=== PATIENT | female | born 1945 | race Caucasian/White ===

== ENCOUNTER 2017-09-20 19:36 | Inpatient (IN) | payer OTHER ==
[~2017-09-20] VITALS: Ht 160 cm; Wt 98.0 kg
[2017-09-20 19:47] VITALS: BP 145/84
[2017-09-20] MEDS ORDERED: COUMADIN 5 MG TA5 M1 PO (19:54)
[2017-09-20] MEDS ORDERED: LISINOPRIL20 MG PO (19:54)
[2017-09-20] MEDS ORDERED: COREG3.125 MG PO (19:55)
[2017-09-20] MEDS ORDERED: ALLOPURINOL 30300 M1 PO (19:55)
[2017-09-20] MEDS ORDERED: ZOCOR20 MG PO (19:56)
[2017-09-20] MEDS ORDERED: NORVASC10 MG PO (19:56)
[2017-09-20] MEDS ORDERED: MACROBID 100 M100 M3 (19:57)
[2017-09-20] MEDS ORDERED: FLOMAX0.4 MG PO (19:57)
[2017-09-20 20:33] LABS: ABSOLUTE BASOPHILS 0.1 thou/uL (0.0-0.2); ABSOLUTE EOSINOPHILS 0.2 thou/uL (0.0-0.7); ABSOLUTE LYMPHOCYTES 2.1 thou/uL (0.8-5.3); ABSOLUTE MONOCYTES 0.6 thou/uL (0.0-1.2); ABSOLUTE NEUTROPHILS 7.7 thou/uL (1.6-8.1); BASOPHILS 0.7 %; EOSINOPHILS 1.6 %; HEMATOCRIT 42.9 % (37.0-47.0); HEMOGLOBIN 14.5 gm/dL (12.0-15.0); LYMPHOCYTES 19.5 %; MCH 33.2 pg (26.0-34.0); MCHC 33.8 g/dL (28.0-37.0); MCV 98.2 fL (80.0-100.0); MONOCYTES 5.4 %; MPV 10.9 fl. (7.2-11.1); NUCLEATED RBCS 0 /100WBC; PLATELET COUNT* 182 thou/uL (150-400); POLYS 72.8 %; RBC 4.37 mil/uL (4.20-5.00); RDW-CV 15.3 % (10.5-14.5); WBC 10.6 thou/uL (4.0-11.0)
[2017-09-20 20:46] LABS: ANION GAP 11 mmol/L (7-16); BUN 22 mg/dL (7-18); CALCIUM 8.7 mg/dL (8.5-10.1); CHLORIDE 105 mmol/L (98-107); CO2 22 mmol/L (21-32); CREATININE 1.4 mg/dL (0.6-1.3); GLUCOSE 145 mg/dL (70-99); POTASSIUM 3.8 mmol/L (3.5-5.1); SODIUM 138 mmol/L (136-145)
[2017-09-20 20:51] LABS: APTT 43.4 Seconds (25.0-31.3); INR 3.7; PROTIME 35.1 Seconds (9.20-11.50)
[2017-09-20 20:52] LABS: ALBUMIN 3.8 g/dL (3.4-5.0); ALKALINE PHOSPHATASE 76 U/L (46-116); LIPASE 138 U/L (73-393); SGOT 15 U/L (15-37); SGPT 15 U/L (30-65); TOTAL BILIRUBIN 0.3 mg/dL (<0.1-1.0); TOTAL PROTEIN 6.9 g/dL (6.4-8.2); TROPONIN-I LEVEL <0.06 ng/mL (<0.06)
[2017-09-21] VITALS (7 sets, daily range): BP systolic 105–147; BP diastolic 49–102
[2017-09-21] MEDS ORDERED: TRAMADOL 50 MG50 MG PO (02:11)
[2017-09-21 12:03] LABS: ABSOLUTE BASOPHILS 0.1 thou/uL (0.0-0.2); ABSOLUTE EOSINOPHILS 0.2 thou/uL (0.0-0.7); ABSOLUTE LYMPHOCYTES 1.9 thou/uL (0.8-5.3); ABSOLUTE MONOCYTES 0.7 thou/uL (0.0-1.2); ABSOLUTE NEUTROPHILS 3.5 thou/uL (1.6-8.1); EOSINOPHILS 2.6 %; HEMATOCRIT 38.8 % (37.0-47.0); HEMOGLOBIN 13.1 gm/dL (12.0-15.0); LYMPHOCYTES 30.8 %; MCH 32.6 pg (26.0-34.0); MCHC 33.7 g/dL (28.0-37.0); MCV 96.9 fL (80.0-100.0); MONOCYTES 10.3 %; MPV 10.6 fl. (7.2-11.1); NUCLEATED RBCS 0 /100WBC; PLATELET COUNT* 166 thou/uL (150-400); POLYS 55.3 %; RDW-CV 15.4 % (10.5-14.5); WBC 6.3 thou/uL (4.0-11.0)
[2017-09-21 12:24] LABS: CALCIUM 8.1 mg/dL (8.5-10.1); CREATININE 1.3 mg/dL (0.6-1.3); POTASSIUM 3.7 mmol/L (3.5-5.1)
[2017-09-22] VITALS: BP 122/55
[2017-09-22 04:00] VITALS: BP 111/51
[2017-09-22 06:18] LABS: HEMATOCRIT 37.6 % (37.0-47.0); HEMOGLOBIN 12.8 gm/dL (12.0-15.0); MCV 96.8 fL (80.0-100.0); MPV 11.3 fl. (7.2-11.1); RBC 3.88 mil/uL (4.20-5.00); RDW-CV 15.1 % (10.5-14.5); WBC 6.1 thou/uL (4.0-11.0)
[2017-09-22 06:29] LABS: ALBUMIN 2.9 g/dL (3.4-5.0); CALCIUM 8.1 mg/dL (8.5-10.1); CREATININE 1.2 mg/dL (0.6-1.3); MAGNESIUM 1.8 mg/dL (1.8-2.4); POTASSIUM 3.6 mmol/L (3.5-5.1); TOTAL BILIRUBIN 0.4 mg/dL (<0.1-1.0); TOTAL PROTEIN 5.6 g/dL (6.4-8.2)
[2017-09-22 07:16] LABS: PROTIME 12.4 Seconds (9.20-11.50)
[2017-09-22 07:17] LABS: INR 1.3
[2017-09-22 08:00] VITALS: BP 111/50
[2017-09-22] MEDS ORDERED: BACTRIM DS TAB1 EACH PO (08:51)
[2017-09-22 10:03] VITALS: BP 111/50
--- NOTE | 2017-09-22 12:38 | EKG ---
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 ALFREDO Goddard : 1945 Requested By: Riley Perry Order Number: [id number] MD: Son Rosa Measurements Intervals [place] Rate: 94 P: 23 AK: 195 QRS: -39 QRSD: 87 T: 17 QT: 398 QTc: 498 Interpretive Statements Sinus rhythm Left axis deviation Borderline prolonged QT interval No previous ECG available for comparison Electronically Signed On 09-22-2017 12:38:21 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
--- NOTE | 2017-09-29 14:50 | CON ---
[address] [address] CONSULTATION Name: CHEPE CAMPBELL Room: [address] IN M.R.#: [id number] Admission: 09/20/17 Attend Phys: Lamont Jones MD Discharge: 09/22/17 Date of : 41 Report #: [id number] THIS REPORT FOR: //name// CC: Lamont Roca DO DICTATED BY: Ciara Garcia [facility] DATE OF SERVICE: 09/21/2017 Please note at the time of this dictation, the patient was seen and physically examined by myself. REASON FOR CONSULTATION: Questionable hematochezia and abdominal pain. HISTORY OF PRESENT ILLNESS: This is a 72-year-old female who presented to the Emergency Room after starting an antibiotic for a UTI on the and when she went to the bathroom, she noticed blood in the toilet. After taking one dose of the antibiotic, she had some abdominal cramping and little bit of diarrhea. ER reported that it was in her stool; however, the patient reports that it came from her urine. Currently, the patient is not complaining, a very minimal abdominal discomfort which is mainly in the right flank to right lateral side. She states her bowels normally move every couple of days and sometimes she may have to take something for constipation, but otherwise no problems. She states her last colonoscopy was approximately 5 years ago, which she had done at [facility] and they told her she would be due in 5 years, but the patient states she is not having another colonoscopy done. She just wants to live the rest of her life out. The patient states that her UTI is what she was having and she was to leave to go to [place] today, but that is postponed because of this. Overall, she denies any nausea, vomiting, any fever or chills and her pain is very minimal and she is wanting to go home. ALLERGIES: CONTRAST DYE, BOTH IV AND ORAL AND CODEINE. MEDICATIONS: From home include warfarin, Zestril, allopurinol, Coreg, Zocor, Norvasc, Flomax, Macrobid and Ultram. PAST MEDICAL HISTORY: She had an aortic aneurysm with stent placement, history of breast cancer, recently finished radiation 2 months ago, osteoporosis, history of PE x 3, factor V. PAST SURGICAL HISTORY: Hysterectomy, lumpectomy, stents in her kidney and in her aorta, hysterectomy and vitrectomy in her right eye. FAMILY HISTORY: Positive for breast cancer [place] [address] CONSULTATION Name: CHEPE CAMPBELL Room: [address] IN M.R.#: [id number] Admission: 09/20/17 Attend Phys: Lamont Jones MD Discharge: 09/22/17 Date of : 41 Report #: [id number]. SOCIAL HISTORY: She smokes daily a pack a day for the last 40 years. Denies any illegal drug use and does not use any alcohol. REVIEW OF SYSTEMS: Twelve-point review of systems is essentially negative except what is mentioned in the HPI. PHYSICAL EXAMINATION: VITAL SIGNS: Temperature 36.9, pulse 73, respirations 19, blood pressure 131/58. HEART: Regular rate and rhythm. LUNGS: Clear. ABDOMEN: Soft, positive bowel sounds in all 4 quadrants with no masses or slight tenderness noted on the right. CT showed just some scattered diverticulosis. LABORATORY DATA: Hemoglobin 14.5, hematocrit 42.9, white count is 10.6, platelets 182. Sodium 138, potassium 3.8, chloride 105, CO2 of 22, BUN is 22, creatinine 1.4, GFR is 37 and glucose is 145. PT is 35.1, INR is 3.7. LFTs are completely normal. IMPRESSION: 1. Questionable hematochezia. 2. Abdominal discomfort. 3. Urinary tract infection. 4. Anticoagulant therapy secondary to factor V. 5. History of pulmonary embolisms. 6. Personal history of breast cancer, radiation completed 2 months ago. PLAN: 1. [facility], we will obtain records of her last EGD, colonoscopy with path. 2. Likely blood was from urination and not bowel. We will just monitor for now for any overt bleeding. 3. No plans for any endoscopy studies at this time. Thank you for allowing us to participate in this patient's care. Please do not hesitate to call with any questions in regard to this consult. ADDENDUM I have personally seen and examined the patient who presented to hospital with a suspicious GI bleed. She also takes anticoagulation therapy, Coumadin for history of factor V Leiden. 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 [address] [address] CONSULTATION Name: CHEPE CAMPBELL Room: [address] [facility] IN M.R.#: [id number] Admission: 09/20/17 Attend Phys: Lamont Jones MD Discharge: 09/22/17 Date of : 41 Report #: [id number] The patient reports that her last colonoscopy was 5 years ago and does not recall the result. She has history of breast CA with radiation completed 2 months ago. We will consider a colonoscopy as outpatient. Meanwhile, her suspicious GI bleed was found to be hematuria. She has history of urethral stenting and kidney stones in the past. We will continue to monitor her and watch her hemoglobin. <ELECTRONICALLY SIGNED> By: Duy De La Vega MD 09/29/17 1450 1042 [id number] De La Vega MD /nt
--- NOTE | 2017-09-29 14:51 | CON ---
[address] [address] CONSULTATION Name: ATULJUNIORCHEPE K Room: [address] IN M.R.#: [id number] Admission: 09/20/17 Attend Phys: Lamont Jones MD Discharge: 09/22/17 Date of : 41 Report #: [id number] THIS REPORT FOR: //name// CC: Lamont Jones [facility] DATE OF SERVICE: 09/21/2017 ADDENDUM I have personally seen and examined the patient who presented to hospital with a suspicious GI bleed. She also takes anticoagulation therapy, Coumadin for history of factor V Leiden. 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 The patient reports that her last colonoscopy was 5 years ago and does not recall the result. She has history of breast CA with radiation completed 2 months ago. We will consider a colonoscopy as outpatient. Meanwhile, her suspicious GI bleed was found to be hematuria. She has history of urethral stenting and kidney stones in the past. We will continue to monitor her and watch her hemoglobin. <ELECTRONICALLY SIGNED> By: Duy De La Vega MD 09/29/17 1451 1516 [id number] Titus De La Vega MD /nt
== END 2017-09-22 10:15 | disposition home or self-care (01) | DRG 690 ==
LOC: M.ERS 19:36 → M.ICU 21:25 → M.TBA-ER 21:25 → M.ICU 09-21 00:03
PROVIDERS: Family Medicine; Internal Medicine; ADMIT Internal Medicine
DX: N39.0 Urinary tract infection, site not specified (principal); D68.59 Other primary thrombophilia; F17.210 Nicotine dependence, cigarettes, uncomplicated; I12.9 Hypertensive chronic kidney disease with stage 1 through stage 4 chronic kidney disease, or unspecified chronic kidney disease; N18.3 Chronic kidney disease, stage 3 (moderate); I25.10 Atherosclerotic heart disease of native coronary artery without angina pectoris; M81.0 Age-related osteoporosis without current pathological fracture; Z85.3 Personal history of malignant neoplasm of breast; Z79.899 Other long term (current) drug therapy; Z88.5 Allergy status to narcotic agent; Z91.041 Radiographic dye allergy status; Z86.711 Personal history of pulmonary embolism; Z80.3 Family history of malignant neoplasm of breast; Z80.41 Family history of malignant neoplasm of ovary; Z79.01 Long term (current) use of anticoagulants; Z90.710 Acquired absence of both cervix and uterus

== ENCOUNTER → 2018-08-02 | Outpatient (CLI) | payer OTHER ==
[~2018-08-02] MED LIST: ALLOPURINOL 30300 M1 PO; BACTRIM DS TAB1 EACH PO; COREG3.125 MG PO; COUMADIN 5 MG TA5 M1 PO; FLOMAX0.4 MG PO; LISINOPRIL20 MG PO; MACROBID 100 M100 M3; NORVASC10 MG PO; TRAMADOL 50 MG50 MG PO; ZOCOR20 MG PO
[2018-08-02 14:57] LABS: ABSOLUTE BASOPHILS 0.1 thou/uL (0.0-0.2); ABSOLUTE EOSINOPHILS 0.4 thou/uL (0.0-0.7); ABSOLUTE LYMPHOCYTES 2.7 thou/uL (0.8-5.3); ABSOLUTE MONOCYTES 0.5 thou/uL (0.0-1.2); ABSOLUTE NEUTROPHILS 3.6 thou/uL (1.6-8.1); BASOPHILS 1.5 %; EOSINOPHILS 5.7 %; HEMATOCRIT 42.8 % (37.0-47.0); HEMOGLOBIN 14.5 gm/dL (12.0-15.0); LYMPHOCYTES 36.6 %; MCH 32.7 pg (26.0-34.0); MCHC 33.8 g/dL (28.0-37.0); MCV 96.8 fL (80.0-100.0); MONOCYTES 7.3 %; NUCLEATED RBCS 0 /100WBC; PLATELET COUNT* 218 thou/uL (150-400); POLYS 48.9 %; RBC 4.42 mil/uL (4.20-5.00); RDW-CV 15.3 % (10.5-14.5); WBC 7.4 thou/uL (4.0-11.0)
[2018-08-02 15:15] LABS: ALBUMIN 3.8 g/dL (3.4-5.0); CALCIUM 9.1 mg/dL (8.5-10.1); CREATININE 1.3 mg/dL (0.6-1.3); POTASSIUM 4.2 mmol/L (3.5-5.1); TOTAL BILIRUBIN 0.3 mg/dL (<0.1-1.0); TOTAL PROTEIN 7.2 g/dL (6.4-8.2)
== END ==
LOC: M.ULTRA 14:36
PROVIDERS: Family Medicine
DX: M79.89 Other specified soft tissue disorders (principal); M79.605 Pain in left leg; Z86.718 Personal history of other venous thrombosis and embolism

== ENCOUNTER → 2020-03-17 | Outpatient (CLI) | payer OTHER | LOC: M.RAD 13:28 | PROVIDERS: ATTEND Family Medicine | DX: M81.0 Age-related osteoporosis without current pathological fracture (principal) ==